=== PATIENT | male | born 1955 | race African-American/Black ===

== ENCOUNTER 2020-10-01 13:29 | Emergency (ER) | payer MEDICARE, OTHER ==
[~2020-10-01] VITALS: Ht 182.9 cm; Wt 95.3 kg
--- NOTE | 2020-10-01 13:43 | NUR ---
ED Nurse Note: patient not in the waiting room.
--- NOTE | 2020-10-01 14:10 | NUR ---
ED Nurse Note: Patient fromhome and walked in due to ingrown hair on his back of head x 1 week. Pt is AOx4, calm and cooperative, VSS, on RA, afebrile on triage.
[2020-10-01] MEDS ORDERED: Lidocaine 2% 20mg/ml/Epi 0.005mg/ml 20ml vial INJ ONE (14:30)
[2020-10-01] MEDS ORDERED: HYDROcodone/Acetamin 5/325 tab ORAL ONE (14:30)
[2020-10-01 14:48] VITALS: BP 166/99
--- NOTE | 2020-10-01 15:01 | Emergency Room Report ---
History of Present Illness General Chief Complaint: Skin Rash/Abscess Source: Patient Present Illness HPI 65 YO Male presents to the ED c/o 8/10 pain, swelling, and erythema of back of the head x 1 week. pt. reports hx of abscess/ ingrown hair in the past that required I & D. PT. reports he let his friend try to remedy the abscess on the back of his head a few days ago without success. Pt. reports swelling and tenderness has spread. Pt. denies fevers or chills. He denies neck pain or stiffness. PT. reports allergy to PCN. He reports after initial I & D over a year ago, he always had a palpable lump that was chronically there. He reports recently it came to a head. 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 COVID-19 Screening: Negative COVID-19 COVID-19 Testing Source: OP Patient History Past Medical History: see triage record Past Surgical History: none Pertinent Family History: none Reviewed Nursing Documentation: PMH: Agreed; PSxH: Agreed Nursing Documentation-PMH Past Medical History: No Stated History Review of Systems All Other Systems: negative except mentioned in HPI Physical Exam Vital Signs Date Time Temp Pulse Resp B/P (MAP) Pulse Ox O2 Delivery O2 Flow Rate FiO2 10/01/20 13:56 98.6 78 16 166/99 (121) 96 Room Air Sp02 EP Interpretation: reviewed, normal General Appearance: no apparent distress, alert, GCS 15, non-toxic Head: normocephalic, atraumatic, other - [address] lesion with a central punctate purulent head that is scantly draining in the occiput area of the scalp. There is surrounding erythema that extends into the soft tissues surrounding the area of induration. No palpable LAD. FROM of the neck. Eyes: bilateral eye normal inspection, bilateral eye PERRL ENT: hearing grossly normal, normal voice Neck: full range of motion, no meningismus, no bony tend Respiratory: lungs clear, normal breath sounds, speaking full sentences Cardiovascular #1: regular rate, rhythm Musculoskeletal: normal range of motion, gait/station normal, non-tender Neurologic: alert, motor strength/tone normal, oriented x3, sensory intact, responsive, speech normal Psychiatric: judgement/insight normal Skin: other - [address] lesion with a central punctate purulent head that is scantly draining in the occiput area of the scalp. There is surrounding erythema that extends into the soft tissues surrounding the area of induration. No palpable LAD. FROM of the neck. Lymphatic: no adenopathy Procedures Incision and Drainage Incision and Drainage : Consent: Verbal Site: occiput area of the scalp Blade Size: 11 I & D Procedure: betadine prep, sterile drapes applied, sterile dressing applied Wound Location: head Wound's Depth, Shape: linear Wound Length (cm): 1 Wound Explored: contaminated - thickened purulent d/c was expressed. some blood as well. Irrigated w/ Saline (ccs): 20 Anesthesia: Lidocaine w/ Epi Volume Anesthetic (ccs): 2 Splint Applied?: No Sling Applied?: No Patient Tolerated: Well Complications: None Progress hemostasis was achieved after procedure with application of direct pressure Medical Decision Making PA Attestation Dr. Frazier is my supervising Physician whom patient management has been discussed with. Diagnostic Impression: Primary Impression: Infected epidermoid cyst ER Course 65 YO Male presents to the ED c/o 07/06 pain, swelling, and erythema of back of the head x 1 week. pt. reports hx of abscess/ ingrown hair in the past that required I & D. PT. reports he let his friend try to remedy the abscess on the back of his head a few days ago without success. Pt. reports swelling and tenderness has spread. Pt. denies fevers or chills. He denies neck pain or stiffness. PT. reports allergy to PCN. He reports after initial I & D over a year ago, he always had a palpable lump that was chronically there. He reports recently it came to a head. Ddx considered but are not limited to cellulitis, abscess, cystic acne, necrotizing fasciitis, insect bite, sebaceous cyst, Skin cancer just to name a few. Vital signs: are WNL, pt. is afebrile H&PE are most consistent with ST infected sebaceous cyst of the occipital region. with secondary infection noted. ORDERS: none required at this time, the diagnosis is clinical ED INTERVENTIONS: -I & D. -Crary PO - Sterile dressing applied by RN. D/w Pt. importance of PCP and dermatology follow up as this never completely resolved he needs to have removal and biopsy performed on an outpatient basis. -I do not identify an emergent condition at this time. With current presentation, pt. is stable for close outpatient follow up and conservative farnaz atment. D/w pt. to return promptly to ED with worsening or new symptoms.- Pt. verbalizes' understanding and agreement with proposed treatment plan. DISCHARGE: At this time pt. is stable for d/c to home. Will provide printed patient care instructions, and any necessary prescriptions. Care plan and follow up instructions have been discussed with the patient prior to discharge. Last Vital Signs Date Time Temp Pulse Resp B/P (MAP) Pulse Ox O2 Delivery O2 Flow Rate FiO2 10/01/20 13:56 98.6 78 16 166/99 (121) 96 Room Air Status: improved Disposition: HOME, SELF-CARE Condition: Stable Scripts Mupirocin* (MUPIROCIN*) 22 Gm Oint...g. 1 APPLIC TOPIC THREE TIMES A DAY, #22 GM Prov: Aparna Holden 10/01/20 Trimethoprim/Sulfamethoxazole 160/800* (BACTRIM DS TABLET*) 1 Each Tablet 1 TAB ORAL TWICE A DAY for 7 Days, #14 TAB Prov: Aparna Holden 10/01/20 Cephalexin* (KEFLEX*) 500 Mg Capsule 500 MG ORAL EVERY 12 HOURS for 7 Days, #14 CAP 0 Refills Prov: Aparna Holden 10/01/20 Referrals: NOT CHOSEN IPA/,REFERRING (PCP) Nathalie Crane [facility]. [facility] Patient Instructions: Epidermal Cyst Additional Instructions: YOU WERE GIVEN 5MG NORCO PAIN MEDICATION HERE IN THE ED. THIS IS A STRONG MEDICATION THAT YOU CANNOT DRIVE OR OPERATE HEAVY MACHINERY WHILE TAKING. THIS MEDICATION WILL CAUSE DROWSINESS AND IMPAIR YOUR JUDGEMENT, MISUSE OF THIS MEDICATION CAN RESULT IN SERIOUS BODILY INJURY TO YOURSELF OR OTHERS. Take medications as directed. Follow up with a Primary Care Provider in 3-5 days, even if your symptoms have resolved. FOLLOW UP WITH DERMATOLOGY FOR DEFINITIVE DIAGNOSIS AND BIOPSY --Please review list of primary care clinics, if you do not already have a primary care provider Return sooner to ED if new symptoms occur, or current symptoms become worse. - Please note that this Emergency Department Report was dictated using [employer] logistics technology software, occasionally this can lead to erroneous entry secondary to interpretation by the dictation equipment. Aparna oHlden Oct 01, 2020 15:01
[2020-10-01] MEDS ORDERED: CEPHALEXIN500 MG ORAL ×2 (15:03)
[2020-10-01] MEDS ORDERED: MUPIROCIN22 GM TOPIC (15:03)
[2020-10-01] MEDS ORDERED: BACTRIM DS TAB1 EAC1 ORAL ×2 (15:03)
[2020-10-01 15:10] VITALS: BP 158/82
--- NOTE | 2020-10-01 15:10 | NUR ---
ER DISCHARGE NOTE: Patient is cleared to be discharged per ERPA, pt is aox4, on room air, with stable vital signs. pt was given dc and prescription instructions, pt was able to verbalize understanding, pt id band removed. pt is able to ambulate with steady gait. pt took all belongings.
[2020-10-03] MEDS ORDERED: BACTRIM DS TAB1 EAC1 ORAL (17:22)
[2020-10-03] MEDS ORDERED: CEPHALEXIN500 MG ORAL (17:22)
== END 2020-10-01 15:10 | disposition home or self-care (01) ==
LOC: EMR 14:31
DX: L72.8 Other follicular cysts of the skin and subcutaneous tissue (principal); Z88.0 Allergy status to penicillin
CPT/HCPCS: 99283